=== PATIENT | female | born 1965 | race Caucasian/White ===

== ENCOUNTER → 2019-10-22 | Outpatient (CLI) | payer BC ==
[2019-10-22 13:17] VITALS: BP 143/85; PULSE 98; TEMP 98.2; BMI 30.4
--- NOTE | 2019-10-22 15:17 | P.BASOAP ---
Subjective Progress Note Date: 10/22/19 Principal diagnosis: Morbid obesity 54-year-old female known to our service. Patient had her lap band placed in May 2009. Patient with almost no follow-up after that. Last note is from September 2009. At that time patient had 5.5 mL in there. Preoperative weight 2008. Currently weight 177. States that she is usually in the 180s. Lately states that she is eating too much. She was told her blood sugars have been increasing. She still does have some restriction however. No vomiting. No reflux. Objective - Vital Signs Vital signs: Vital Signs Temp 98.2 F 10/22/19 13:01 Pulse 98 10/22/19 13:01 Resp BP 143/85 10/22/19 13:01 Pulse Ox Intake & Output 10/21/19 10/22/19 10/22/19 18:59 06:59 18:59 Weight 80.286 kg - Exam Abdomen: Soft, nontender, nondistended Assessment/Plan (1) Morbid obesity Narrative/Plan: Patient requesting band adjustment at this time. Her band was accessed sterilely. She had over 5 mL in the band. 0.5 mL was added for a total of 6 mL. Patient tolerated water without difficulties. Follow-up when necessary. Plan: Date: 10/22/19 Initial Weight: Initial BMI: Current Weight: 80.286 kg Current BMI: 30.4 Type of Surgery: Total Volume in Band: 6.5 Previous Volume: Volume Removed: Volume Added: 0.5 Band Size:
== END | disposition home or self-care (01) ==
LOC: BARWHC3 12:56
PROVIDERS: ATTEND Surgery
DX: Z46.51 Encounter for fitting and adjustment of gastric lap band (principal); E66.01 Morbid (severe) obesity due to excess calories; Z68.30 Body mass index [BMI] 30.0-30.9, adult
CPT/HCPCS: 99212

== ENCOUNTER → 2019-10-31 | Outpatient (CLI) | payer BC ==
[2019-10-31 13:29] VITALS: BP 135/81; PULSE 75; TEMP 98.1; BMI 29.5
--- NOTE | 2019-10-31 13:54 | P.BASOAP ---
Subjective Progress Note Date: 10/31/19 Principal diagnosis: Morbid obesity 54-year-old female known to our service. Patient was in the office last week and had a band adjustment from 5.5-6 mL. Shortly after that patient has noted increased dysphagia and frequent vomiting. Mild upper back discomfort. She was sent for an esophagram today which shows significant obstruction at the band site. Prominence of the gastric pouch noted with some flattening of the angle. No definitive prolapse. Objective - Vital Signs Vital signs: Vital Signs Temp 98.1 F 10/31/19 13:23 Pulse 75 10/31/19 13:23 Resp BP 135/81 10/31/19 13:23 Pulse Ox Intake & Output 10/30/19 10/31/19 10/31/19 18:59 06:59 18:59 Weight 78.018 kg - Exam Abdomen: Soft, nontender, nondistended Assessment/Plan (1) Morbid obesity Narrative/Plan: Upper GI results reviewed with the patient. Recommend emptying the band at this time. Recommend repeating esophagogram prior to refilling of the band. Return in 1 month. The patient's lap band port was palpated. The site was aseptically prepped. The De La Cruz needle was advanced into the port. A total of 5.5 ml of fluid was removed. Band is now empty. Pressure was held and a sterile dressing was applied. Plan: Date: 10/31/19 Initial Weight: Initial BMI: Current Weight: 78.018 kg Current BMI: 29.5 Type of Surgery: Total Volume in Band: 1.4 Previous Volume: Volume Removed: 5.1 Volume Added: Band Size:
== END | disposition home or self-care (01) ==
LOC: BARWHC3 12:51
PROVIDERS: ATTEND Surgery
DX: Z46.51 Encounter for fitting and adjustment of gastric lap band (principal); E66.01 Morbid (severe) obesity due to excess calories; Z68.29 Body mass index [BMI] 29.0-29.9, adult; Z98.84 Bariatric surgery status
CPT/HCPCS: 99212

== ENCOUNTER → 2019-10-31 | Outpatient (CLI) | payer BC ==
--- NOTE | 2019-10-31 11:15 | FL ---
EXAMINATION TYPE: FL barium swallow DATE OF EXAM: 10/31/2019 LAP BANDING LIMITED ESOPHAGRAM: CLINICAL HISTORY: Patient with history of lap band placed 2008 with 10 day episode of dysphasia afte r lap band fluid was refilled last Monday. TECHNIQUE: Limited esophagram is performed utilizing oral barium. A total 16 seconds of fluoroscopic time. 23 spot images saved to PACS. COMPARISON: Prior esophagram images May 29, 2009. FINDINGS: Pre-procedure olive pitter image shows lap band remains stable in position from 2008. It is sli ghtly more inferior than typical measuring roughly 1 vertebral body alignment below the left hemidiap hragm and has abnormal horizontal angle just under 90% slightly more prominent from prior study. The patient drinks oral contrast. There is satisfactory flow of contrast along the course of the esop hagus. There is marked delay in flow of contrast along the course of the lap band, there is only thi n caliber channel identified with majority of contrast pooling in the proximal stomach above lap band in the distal esophagus with periodic reflux into the mid to distal esophagus from the contrast prom inent stomach above the lap band. No extravasation to suggest leak. A 5 minute delayed radiograph zach ws some more passage of contrast into stomach and duodenal sweep along with proximal small bowel loop s. Moderate amount of residual contrast in dilated stomach above lap band and distal esophagus remain s present. IMPRESSION: Moderate to severe obstruction. Increased phi angle from 2008 study suggests some slight inferior slippage, lap band was always somewhat low lying by comparing with prior.
== END | disposition home or self-care (01) ==
LOC: RADFLMAIN 10:36
PROVIDERS: ATTEND Surgery
DX: K22.2 Esophageal obstruction (principal); Z98.84 Bariatric surgery status
CPT/HCPCS: 74220

== ENCOUNTER → 2020-01-28 | Outpatient (CLI) | payer BC ==
[2020-01-28 14:45] VITALS: BP 148/85; PULSE 86; RESP 16; TEMP 98.3
--- NOTE | 2020-01-28 16:16 | P.PN ---
Subjective Progress Note Date: 01/28/20 Principal diagnosis: Morbid obesity Patient here today to discuss potential conversion to alternative bariatric surgery. Patient's band was emptied in October. Patient had a prominent pouch and prolapse not excluded. Patient says her blood sugars have been increasing recently. Blood sugars have been between the mid 200-500 range. She was prescribed oral hypoglycemics but has not filled the prescription thus far. 3 pound increase since last visit. Some belching. No vomiting. Rare episodes of dysphagia. Doing much better once her band was emptied. Patient says her primary concern is resolution of her diabetes. Objective - Vital Signs Vital signs: Vital Signs Temp 98.3 F 01/28/20 14:44 Pulse 86 01/28/20 14:44 Resp 16 01/28/20 14:44 BP 148/85 01/28/20 14:44 Pulse Ox Intake & Output 01/27/20 01/28/20 01/28/20 18:59 06:59 18:59 Weight 79.379 kg - Exam Abdomen: Soft, nontender, nondistended Assessment and Plan (1) Morbid obesity Narrative/Plan: 54-year-old female with LAP-BAND and recent episodes of dysphagia. Upper GI shows probable dilated pouch although prolapse not excluded. She is interested in conversion to alternative bariatric procedure. States she is most interested in curing her diabetes. Both sleeve gastrectomy and gastric bypass options reviewed. Given the increased incidence of resolution of diabetes with gastric bypass we will make an appointment for her to discuss that option with Dr. Ryan. Await her evaluation. Current Visit: No Status: Acute Code(s): E66.01 - MORBID (SEVERE) OBESITY DUE TO EXCESS CALORIES SNOMED Code(s): 306510868
== END | disposition home or self-care (01) ==
LOC: BARWHC3 13:35
PROVIDERS: ATTEND Surgery
DX: E66.01 Morbid (severe) obesity due to excess calories (principal); R13.10 Dysphagia, unspecified; Z68.30 Body mass index [BMI] 30.0-30.9, adult
CPT/HCPCS: 99211

== ENCOUNTER → 2020-03-16 | Outpatient (CLI) | payer BC ==
[2020-03-16 11:33] VITALS: BMI 29.5
== END ==
LOC: BARWHC3 08:41
PROVIDERS: ATTEND Surgery
DX: Z71.3 Dietary counseling and surveillance (principal)
CPT/HCPCS: 97804

== ENCOUNTER → 2020-03-19 | Outpatient (CLI) | payer BC ==
[2020-03-19 10:51] LABS: HCT 44.5 % (34.0-46.0); HGB 14.4 gm/dL (11.4-16.0); MCH 30.7 pg (25.0-35.0); MCHC 32.2 g/dL (31.0-37.0); MCV 95.4 fL (80.0-100.0); Platelet Count 290 k/uL (150-450); RBC 4.67 m/uL (3.80-5.40); RDW 12.5 % (11.5-15.5)
[2020-03-19 17:03] LABS: ALT 27 U/L (8-44); AST 24 U/L (13-35); African American GFR (CKD) 96.2 (60.0-200.0); Albumin/Globulin Ratio 2.14 (1.60-3.17); Alkaline Phosphatase 84 U/L (41-126); BUN/Creat Ratio 21.25 Ratio (12.00-20.00); Calcium 10.2 mg/dL (8.7-10.3); Carbon Dioxide 26.1 mmol/L (21.6-31.8); Chloride 105 mmol/L (96-109); Globulin 2.1 g/dL (1.6-3.3); Glucose 107 mg/dL (70-110); Iron 101 ug/dL (50-170); Potassium 4.2 mmol/L (3.5-5.5); Sodium 139 mmol/L (135-145); Total Bilirubin 0.7 mg/dL (0.3-1.2); Total Protein 6.6 g/dL (6.2-8.2)
[2020-03-19 17:22] LABS: Folate, Serum >24.0 ng/mL
[2020-03-19 17:47] LABS: Hemoglobin A1C 6.8 % (4.0-6.0)
== END | disposition home or self-care (01) ==
LOC: LABWHC1 09:31
PROVIDERS: ATTEND Surgery
DX: E55.9 Vitamin D deficiency, unspecified (principal); K90.89 Other intestinal malabsorption; E66.01 Morbid (severe) obesity due to excess calories
CPT/HCPCS: 36415; 80053; 82306; 82607; 82746; 83036; 83540; 84425; 85027; 93005

== ENCOUNTER 2020-04-07 07:59 | Day surgery (SDC) | payer BC ==
[2020-04-02 15:49] VITALS: BMI 29.2
[~2020-04-07 07:59] MED LIST: LACTATED RINGERS 1,000 ML IV SCH; LIDOCAINE 1% (10MG/ML) FOR IV START INTRADERMA PRN
[2020-04-07] MEDS ORDERED: LIDOCAINE 1% (10MG/ML) FOR IV START INTRADERMA ONE (08:25)
[2020-04-07 08:36] VITALS: RESP 16; TEMP 97
[2020-04-07] MEDS ORDERED: PROPOFOL 10 MG/ML 20 ML VIAL IV ONE (08:40)
[2020-04-07] MEDS ORDERED: LIDOCAINE 1% INJ 10MG/ML (20 ML MDV) ONE (08:40)
[2020-04-07 08:42] LABS: Glucose,Whole Blood 92 mg/dL (75-99)
--- NOTE | 2020-04-07 08:43 | P.GSHP ---
History of Present Illness H&P Date: 04/07/20 Chief Complaint: Dysphagia 54-year-old female here today for EGD. Patient with history of previous lap band placement. Patient was having increased dysphagia and vomiting. Upper GI suggested gastric pouch dilation and possible early prolapse. Patient is interested in band removal and conversion to sleeve gastrectomy. She had considered conversion to gastric bypass but has chosen against that. Patient concerned about her worsening diabetes. Past Medical History Past Medical History: Diabetes Mellitus, Hyperlipidemia History of Any Multi-Drug Resistant Organisms: None Reported Past Surgical History: Bariatric Surgery, Section Additional Past Surgical History / Comment(s): lap band 2009 Past Anesthesia/Blood Transfusion Reactions: No Reported Reaction, Motion Sickness Smoking Status: Never smoker Medications and Allergies Home Medications Medication Instructions Recorded Confirmed Type Multivitamins, Thera [Multivitamin 1 tab PO DAILY 10/22/19 04/02/20 History (formulary)] glipiZIDE [Glucotrol] 2.5 mg PO DAILY 03/18/20 04/02/20 History metFORMIN HCL [Glucophage] 500 mg PO BID 03/18/20 04/02/20 History Ezetimibe/Simvastatin [Vytorin 1 tab PO DAILY 04/02/20 04/02/20 History 10-20 mg] diphenhydrAMINE [Benadryl] 25 mg PO HS PRN 04/02/20 04/02/20 History Allergies Allergy/AdvReac Type Severity Reaction Status Date / Time sulfamethoxazole Allergy Rash/Hives Verified 04/07/20 08:13 [From Aprra] trimethoprim [From Aprra] Allergy Rash/Hives Verified 04/07/20 08:13 Surgical - Exam Vital Signs Temp Pulse Resp BP Pulse Ox 97.0 F L 74 16 145/86 99 04/07/20 08:34 04/07/20 08:34 04/07/20 08:34 04/07/20 08:34 04/07/20 08:34 Physical exam: General: Well-developed, well-nourished HEENT: Normocephalic, sclerae nonicteric Abdomen: Nontender, nondistended Extremities: No edema Neuro: Alert and oriented Assessment and Plan (1) Dysphagia Narrative/Plan: Will proceed with upper endoscopy Current Visit: Yes Status: Acute Code(s): R13.10 - DYSPHAGIA, UNSPECIFIED SNOMED Code(s): 35388759
--- NOTE | 2020-04-07 08:51 | P.PCN ---
Date of Procedure: 04/07/20 Procedure(s) Performed: Preoperative Dx: GERD, band intolerance Postoperative Dx: Gastritis Procedure: EGD with Bx Anesthesia: Sedation Endoscopist: Dr. Weeks Specimens: Antrum Endoscopic Procedure: The patient was on the endoscopy table in the left decubitus position. The Olympus gastroscope was inserted into the oropharynx and passed under direct visualization to the region of the third portion of the duodenum. From that point the scope was slowly withdrawn inspecting all surfaces carefully. There were no neoplastic inflammatory or polypoid lesions throughout the duodenum. The pylorus was widely patent. The stomach was carefully inspected. There was gastritis present throughout the stomach. A biopsy of the antrum took place to rule out H. pylori. Retroflexion revealed a normal appearing band plication. The gastric pouch above the band was slightly larger than normal. No definite hiatal hernia was seen. The esophagus was then carefully examined. There were no neoplastic inflammatory or polypoid lesions throughout the visualized esophagus. The patient was then taken to the recovery room in stable condition per anesthesia guidelines. Recommendations: Await biopsy results. Begin antiacid therapy. Follow-up in the bariatric center.
[2020-04-07 09:17] VITALS: BP 145/88; PULSE 73
== END 2020-04-07 09:53 | disposition home or self-care (01) ==
LOC: ORWHC2ENDO 07:59
PROVIDERS: ATTEND Surgery
DX: K29.50 Unspecified chronic gastritis without bleeding (principal); B96.81 Helicobacter pylori [H. pylori] as the cause of diseases classified elsewhere; K21.9 Gastro-esophageal reflux disease without esophagitis; E11.9 Type 2 diabetes mellitus without complications; E78.5 Hyperlipidemia, unspecified; Z98.84 Bariatric surgery status; Z98.890 Other specified postprocedural states; Z79.84 Long term (current) use of oral hypoglycemic drugs; Z79.899 Other long term (current) drug therapy; Z88.2 Allergy status to sulfonamides; Z88.1 Allergy status to other antibiotic agents
CPT/HCPCS: 43239; 88305; 88342; J2001; J2704

== ENCOUNTER → 2020-06-02 | Outpatient (CLI) | payer BC ==
[2020-06-02 15:22] VITALS: BP 138/60; PULSE 74; TEMP 98; BMI 29.5
--- NOTE | 2020-06-02 16:50 | P.BASOAP ---
Subjective Progress Note Date: 06/02/20 Principal diagnosis: Morbid obesity Patient returns today for recheck. Recent EGD showed mild gastritis. Biopsies were H. pylori positive. He completed her antibiotic and antiacid therapy. Here today for urea breath test. Objective - Vital Signs Vital signs: Vital Signs Temp 98 F 06/02/20 15:17 Pulse 74 06/02/20 15:17 Resp BP 138/60 06/02/20 15:17 Pulse Ox Intake & Output 06/01/20 06/02/20 06/02/20 18:59 06:59 18:59 Weight 78.018 kg - Exam Abdomen: Soft, nontender, nondistended Assessment/Plan (1) Dysphagia Narrative/Plan: 54-year-old female with band intolerance. Band is empty. We'll check urea breath test today. Pending those results will schedule for band removal with sleeve gastrectomy. Patient I reviewed the surgical consent form in detail. Risks reviewed and all questions answered. Patient is agreeable. Plan: Date: 06/02/20 Initial Weight: 94.801 kg Initial BMI: 35.9 Current Weight: 78.018 kg Current BMI: 29.5 Type of Surgery: Total Volume in Band: 1.4 Previous Volume: Volume Removed: Volume Added: Band Size:
== END | disposition home or self-care (01) ==
LOC: BARWHC3 14:14
PROVIDERS: ATTEND Surgery
DX: E66.01 Morbid (severe) obesity due to excess calories (principal); R13.10 Dysphagia, unspecified; Z68.35 Body mass index [BMI] 35.0-35.9, adult
CPT/HCPCS: 99211

== ENCOUNTER 2020-09-14 11:55 | Inpatient (IN) | payer BC ==
--- NOTE | 2020-09-14 11:31 | P.GSHP ---
History of Present Illness H&P Date: 09/14/20 Chief Complaint: Band intolerance, dysphagia 55-year-old female known to our service. Patient had previous lap band placement in 2008. Upper GI was performed because the patient was having episodes of dysphagia and vomiting. Upper GI shows gastric pouch dilation with possible early prolapse. Patient interested in converting her band to an alternative bariatric procedure. She considered both bypass and sleeve gastrectomy. She has chosen sleeve gastrectomy stating she is worried about the side effects of gastric bypass manager terminal. No history of DVT or dysphagia in the past. EGD showed gastritis. No definite prolapse seen. Biopsies showed H. pylori. She was treated for H. pylori twice. Recent urea breath test was normal in July. Patient is a nonsmoker. BMI 30. Past Medical History Past Medical History: Diabetes Mellitus, Hyperlipidemia Additional Past Medical History / Comment(s): NO MEDS AT THIS TIME History of Any Multi-Drug Resistant Organisms: None Reported Past Surgical History: Bariatric Surgery, Section Additional Past Surgical History / Comment(s): lap band 2008, EGD Past Anesthesia/Blood Transfusion Reactions: No Reported Reaction, Motion Sickness Smoking Status: Never smoker - Past Family History Mother Family Medical History: No Reported History Medications and Allergies Home Medications Medication Instructions Recorded Confirmed Type No Known Home Medications 09/08/20 09/08/20 History Allergies Allergy/AdvReac Type Severity Reaction Status Date / Time sulfamethoxazole Allergy Rash/Hives Verified 09/08/20 09:44 [From ] trimethoprim [From ] Allergy Rash/Hives Verified 09/08/20 09:44 Surgical - Exam Physical exam: General: Well-developed, well-nourished HEENT: Normocephalic, sclerae nonicteric Abdomen: Nontender, nondistended Extremities: No edema Neuro: Alert and oriented Assessment and Plan (1) Morbid obesity Narrative/Plan: 55-year-old female with persistent obesity and indwelling LAP-BAND showing signs of possible early prolapse with persistent dysphagia, GERD, and intermittent vomiting. We'll proceed with lap band removal and planned conversion to sleeve gastrectomy. The risks of bleeding, infection, stenosis, stricture, leak, abscess, fistula formation, peritonitis, poor weight loss, reflux, vomiting, conversion to an open procedure, aborting sleeve gastrectomy, OH, PE, DVT, and were discussed. The patient understands and wishes to proceed. Status: Acute Code(s): E66.01 - MORBID (SEVERE) OBESITY DUE TO EXCESS CALORIES SNOMED Code(s): 588844495
[~2020-09-14 11:55] MED LIST changes: +DEXAMETHASONE SOD PHOSPHATE 4 MG/ML 1 ML VIAL IV ONE; -LACTATED RINGERS 1,000 ML IV SCH; -LIDOCAINE 1% (10MG/ML) FOR IV START INTRADERMA PRN; +MIDAZOLAM 2 MG/2 ML VIAL IV PRN; +ONDANSETRON 4 MG/2 ML VIAL IVP ONE; +SCOPOLAMINE 1.5MG/72HR PATCH TRANSDERM ONE
[2020-09-14 12:32] LABS: Glucose,Whole Blood 105 mg/dL (75-99)
[2020-09-14] MEDS: LACTATED RINGERS 1,000 ML IV SCH (12:39)
[2020-09-14] MEDS ORDERED: LIDOCAINE 1% (10MG/ML) FOR IV START INTRADERMA ONE (12:39)
[2020-09-14] MEDS ORDERED: ENOXAPARIN 40 MG/0.4 ML SYRINGE SQ STA (12:41)
[2020-09-14] MEDS ORDERED: HYDROmorphone (PF) 1 MG/ML ONE (13:10)
[2020-09-14] MEDS ORDERED: METHYLENE BLUE 10 MG/ML (10 ML VIAL) ONE (13:10)
[2020-09-14] MEDS ORDERED: MIDAZOLAM 2 MG/2 ML VIAL ONE (13:10)
[2020-09-14] MEDS ORDERED: DEXTROSE 5% IN WATER 500 ML BAG ONE (13:10)
[2020-09-14] MEDS ORDERED: LIDOCAINE 1% INJ 10MG/ML (20 ML MDV) ONE (13:10)
[2020-09-14] MEDS ORDERED: ROCURONIUM 10 MG/ML (10 ML VIAL) IV ONE (13:10)
[2020-09-14] MEDS ORDERED: fentaNYL (PF) 50 MCG/ML 2 ML AMP ONE (13:10)
[2020-09-14] MEDS ORDERED: GLYCOPYRROLATE 0.2 MG/ML 2 ML VIAL ONE (13:10)
[2020-09-14] MEDS ORDERED: PROPOFOL 10 MG/ML 20 ML VIAL IV ONE (13:10)
[2020-09-14] MEDS ORDERED: NEOSTIGMINE 1 MG/ML 10 ML VIAL ONE (13:10)
[2020-09-14] MEDS ORDERED: SUCCINYLCHOLINE CHLORIDE 100 MG/5 ML SYR IV ONE (13:10)
[2020-09-14] MEDS ORDERED: BUPIVACAINE (PF) 0.25% 30 ML VIAL SQ ONE (13:13)
[2020-09-14] MEDS ORDERED: LACTATED RINGERS 1,000 ML IV ONE ×2 (14:30→17:03)
[2020-09-14] MEDS ORDERED: diphenhydrAMINE 50 MG/ML 1 ML VIAL IVP PRN (15:17)
[2020-09-14] MEDS ORDERED: NALOXONE 0.4 MG/ML 1 ML VIAL IV PRN (15:17)
[2020-09-14] MEDS: HYDROmorphone 0.5 MG/0.5 ML SYRINGE IVP PRN ×2 (15:45→16:31)
[2020-09-14] MEDS ORDERED: HYDROmorphone 1 MG/ML 1 ML SYRINGE IVP ONE ×2 (15:45→15:50)
--- NOTE | 2020-09-14 15:45 | P.OP ---
Date of Procedure: 09/14/20 Procedure(s) Performed: PREOPERATIVE DIAGNOSIS: Morbid obesity, band intolerance, reflux POSTOPERATIVE DIAGNOSIS: Same PROCEDURE: Laparoscopic lap band removal with sleeve gastrectomy SURGEON: Micky EBL: 20 mL ANESTHESIA: General COMPLICATIONS: None OPERATIVE PROCEDURE: Patient was placed in the operating table in the supine position. She was placed under general anesthesia at that time. The abdomen was prepped and draped in sterile fashion after the patient was placed in lithotomy. The previous port incision was re-incised after localizing with anesthesia. The port was easily removed. Through that location and a 5 mm trocar was placed into the peritoneal cavity. Full insufflation took place up to 15 millimeters mercury. An additional right subxiphoid 5 mm trocar was then placed under direct visualization and then removed. 2 additional 5 mm trochars were placed in the right upper quadrant and left upper quadrant under direct visualization and a 12 mm trocar in the supraumbilical location. The initial 5 mm trocar was switched to a 15 at that point. The liver was retracted using a [facility] liver retractor through the right subxiphoid trocar site. The patient's lap band was inspected. The amount of adhesions around the band were less than average. The adhesions around the buckle were lysed using electrocautery and blunt dissection. The buckle was able to be opened fully at that point. The gastric plication was then taken down using sharp dissection and the LigaSure device. The hiatus was inspected. The patient had no visible hiatal hernia At that point I moved to the mid aspect of the greater curvature the stomach. The short gastric vasculature was divided using a LigaSure device proximally. I then switched and divided the short gastrics distally to a 3-4 cm from the pylorus. The dissection took place up to the left diaphragmatic crura at that point. The posterior adhesions from the previous band were divided using the LigaSure device as well. The cicatrix like formation around the band was actually fairly soft and did not require excision over the gastric serosa. The band was removed at that point. Once the stomach was fully mobilized the blunt tipped 40-[place] bougie dilator was advanced into the stomach and advanced all the way to the prepyloric location. A black echelon 60 stapler was utilized and fired tangentially across the antrum taking care to avoid narrowing at the incisura angularis. Subsequent firings of the stapler took place. A total of 5 green echelon 60 staplers with seam guard took place proximally staying on the outer edge of our dilator. The oral gastric tube was reinserted. The stomach was insufflated with approximately 100 mL of methylene blue. No evidence of leak or obstruction was seen. Tisseel fibrin glue was used along the length of staple line. Her were 2 small areas along the staple line that were oozing and controlled using the clip production floater. Additionally during the procedure a small area of bleeding was seen along the gastrocolic omentum when we were mobilizing the antrum. This was controlled using a clipper as well. The stomach remnant was removed from the 15 mm trocar site without difficulty. The fascia at the 15 and 12 mm trocar site was closed using interrupted 0 Vicryl sutures with the laparoscopic suture passer and Jayant Dominick technique. The insufflation was evacuated. The skin at all 5 incisions were closed using 4-0 Monocryl sutures. Skin glue was then applied. DISPOSITION: Stable to recovery room
[2020-09-14] MEDS ORDERED: ONDANSETRON 4 MG/2 ML VIAL IVP ONE ×2 (15:50→15:55)
[2020-09-14] MEDS ORDERED: diphenhydrAMINE 50 MG/ML 1 ML VIAL IVP ONE (16:12)
[2020-09-14 16:22] LABS: Glucose,Whole Blood 164 mg/dL (75-99)
[2020-09-14] MEDS: ALBUTEROL NEBULIZED 2.5 MG/3 ML INHALATION SCH ×3 (18:22→19:55)
[2020-09-14] MEDS: 0.9% NACL WITH KCL 20 MEQ/L 1,000 ML IV SCH (18:22)
[2020-09-14] MEDS: HYDROmorphone 1 MG/ML 1 ML SYRINGE IVP PRN (19:34)
[2020-09-14] MEDS: ONDANSETRON 4 MG/2 ML VIAL IVP PRN (19:34)
[2020-09-14 21:14] LABS: Glucose,Whole Blood 197 mg/dL (75-99)
[2020-09-14] MEDS: INSULIN ASPART (NovoLOG) 100 UNIT/ML VIAL SQ SCH (21:29)
--- NOTE | 2020-09-14 22:33 | P.CONS ---
History of Present Illness - Reason for Consult Consult date: 09/14/20 medical management of DM Requesting physician: Dilan Weeks - Chief Complaint scheduled for bariatric surgery - History of Present Illness 55 year old female with DM and obesity patient comes in for removal of lap band and elective gastric sleeve. patient had lap band done 2008 for obesity , and since then she has been doing well and lost some weight. recently, started experiencing repeated occasional vomiting and dysphagia, she had Upper GI scoping showing gastric pouch dilatation and possible early prolapse and gastritis. biopsy also was positive for H pylori for which she was treated twice. patient tolerated procedure well today, she is still NPO, denies any chest pain or trouble breathing, denies any GI bleeding, denies any fever, or abd pain . she has history of DM , and on metformin, and recently discontinued glipizide due to hypoglycemia episodes Review of Systems Pertinent positives as noted in HPI. All other systems were reviewed and are negative Past Medical History Past Medical History: Diabetes Mellitus, Hyperlipidemia Additional Past Medical History / Comment(s): NO MEDS AT THIS TIME History of Any Multi-Drug Resistant Organisms: None Reported Past Surgical History: Bariatric Surgery, Section Additional Past Surgical History / Comment(s): lap band 2008, EGD Past Anesthesia/Blood Transfusion Reactions: No Reported Reaction, Motion Sickness Smoking Status: Never smoker - Past Family History Mother Family Medical History: No Reported History Medications and Allergies Home Medications Medication Instructions Recorded Confirmed Type No Known Home Medications 09/08/20 09/14/20 History Allergies Allergy/AdvReac Type Severity Reaction Status Date / Time sulfamethoxazole Allergy Rash/Hives Verified 09/14/20 12:49 [From ] trimethoprim [From ] Allergy Rash/Hives Verified 09/14/20 12:49 Physical Exam Vitals: Vital Signs Temp Pulse Pulse Pulse Resp BP BP 09/14/20 20:05 100 09/14/20 19:55 104 H 09/14/20 18:35 98.9 F 105 H 18 161/82 09/14/20 18:04 98.8 F 100 18 158/80 09/14/20 17:30 100 14 150/70 09/14/20 17:15 95 16 164/83 09/14/20 17:00 92 14 171/84 09/14/20 16:45 107 H 14 164/79 09/14/20 16:30 84 16 168/81 09/14/20 16:15 82 16 167/78 09/14/20 16:00 102 H 16 166/77 09/14/20 15:45 102 H 14 158/74 09/14/20 15:30 109 H 14 162/77 09/14/20 15:27 97.8 F 98 14 165/77 09/14/20 12:18 97.7 F 89 16 150/80 Pulse Ox 09/14/20 20:05 09/14/20 19:55 96 09/14/20 18:35 98 09/14/20 18:04 94 L 09/14/20 17:30 98 09/14/20 17:15 92 L 09/14/20 17:00 99 09/14/20 16:45 99 09/14/20 16:30 100 09/14/20 16:15 100 09/14/20 16:00 100 09/14/20 15:45 96 09/14/20 15:30 100 09/14/20 15:27 95 09/14/20 12:18 97 Intake and Output 09/14/20 09/14/20 09/14/20 06:59 14:59 22:59 Intake Total 1250 900 Output Total 20 Balance 1250 880 Intake: IV 1250 900 Output: Estimated Blood Loss 20 Other: Weight 78.2 kg 78.2 kg Constitutional: No acute distress, conversant, pleasant Eyes: Anicteric sclerae, moist conjunctiva, Pupils equal round reactive to light ENMT: NC/AT Oropharynx clear, no erythema, or exudates Neck: Supple, FROM, no masses, or JVD No carotid bruits No thyromegaly Lungs: Clear to auscultation Clear to percussion Normal respiratory effort, no accessory muscle use Cardiovascular: Heart regular in rate and rhythm, No murmurs, gallops, or rubs No peripheral edema Abdominal: Soft, surgical scaring of laproscopy looks clean dry and intact. no surrounding erythema no bruising Nontender, no guarding, rebound or rigidity Abdomen moving with respiration bowel sounds sluggish No hepatomegaly, No splenomegaly No palpable mass No abdominal wall hernia noted Skin: Normal temperature, tone, texture, turgor No induration No subcutaneous nodules No rash, lesions No ulcers Extremities: No digital cyanosis No clubbing Pedal pulses intact and symmetrical Radial pulses intact and symmetrical No calf tenderness Psychiatric: Alert and oriented to person, place and time Appropriate affect fair judgement Neuro Muscles Strength 5/5 in all 4 extremities Sensation to light touch grossly present throughout Cranial nerves II-XII grossly intact No focal sensory deficits Lymphatics: no palpable cervical or supraclavicular , or inguinal lymph nodes Results Labs: Abnormal Lab Results - Last 24 Hours (Table) 09/14/20 09/14/20 Range/Units 12:30 16:20 POC Glucose (mg/dL) 105 H 164 H (75-99) mg/dL Assessment and Plan Assessment: revision and removal of lap band, plus gastric sleeve, POD zero management per Gen Sx pain control IVF hydration still NPO post op local wound care post op DVT ppx per general surgery DM , on oral hypoglycemia agents , on hold check A1C insulin sliding scale hyperlipidemia resume home meds obesity life style modification , post bariatric surgery DVT prophylaxis on Lovenox GI PPX with PPI check A1C check CBC and BMP in AM Thank you for allowing us to participate in the care of this patient. Do not hesitate to contact us with questions. Someone can be reached from the [facility] hospitalist group at all hours of the day at [phone].
[2020-09-15] MEDS: HYDROmorphone 1 MG/ML 1 ML SYRINGE IVP PRN ×4 (00:34→14:36)
[2020-09-15] MEDS: SIMETHICONE 40 MG/0.6 ML DROPS 2,000 MG/30 ML BOTTLE PO PRN ×3 (00:35→15:29)
[2020-09-15] MEDS: HYOSCYAMINE ORAL DROPS 1.875 MG/15 ML BOTTLE PO PRN ×2 (00:35→05:41)
[2020-09-15] MEDS: 0.9% NACL WITH KCL 20 MEQ/L 1,000 ML IV SCH ×2 (00:35→08:17)
[2020-09-15] MEDS: ENOXAPARIN 40 MG/0.4 ML SYRINGE SQ SCH ×2 (05:39→17:36)
[2020-09-15 06:26] LABS: Basophils % (A) 0 %; Eosinophils % (A) 0 %; HCT 40.1 % (34.0-46.0); HGB 13.6 gm/dL (11.4-16.0); Lymphocytes # (A) 1.7 k/uL (1.0-4.8); Lymphocytes % (A) 14 %; MCH 31.3 pg (25.0-35.0); MCHC 33.8 g/dL (31.0-37.0); MCV 92.6 fL (80.0-100.0); Mean Platelet Volume 7.6; Monocytes # (A) 0.8 k/uL (0-1.0); Monocytes % (A) 7 %; Neutrophils # (A) 9.2 k/uL (1.3-7.7); Neutrophils % (A) 77 %; Platelet Count 280 k/uL (150-450); RBC 4.33 m/uL (3.80-5.40); WBC 11.9 k/uL (3.8-10.6)
[2020-09-15 07:40] LABS: Glucose,Whole Blood 113 mg/dL (75-99)
[2020-09-15] MEDS: ALBUTEROL NEBULIZED 2.5 MG/3 ML INHALATION SCH ×4 (08:01→19:45)
[2020-09-15] MEDS: LACTATED RINGERS 1,000 ML IV SCH (08:13)
[2020-09-15] MEDS: INSULIN ASPART (NovoLOG) 100 UNIT/ML VIAL SQ SCH ×4 (08:15→20:44)
[2020-09-15] MEDS: PANTOPRAZOLE 40 MG/10 ML VIAL IV SCH (08:17)
--- NOTE | 2020-09-15 09:39 | FL ---
EXAMINATION TYPE: FL UGI DATE OF EXAM: 09/15/2020 CLINICAL HISTORY: Status post gastric sleeve Contrast: Omnipaque 350 50 mL The patient ingested contrast without difficulty or delay. Noted are postsurgical changes of gastric sleeve. There is no evidence for leak or obstruction. Contrast is noted within the duodenum. IMPRESSION: Post-surgical change of gastric sleeve without evidence for obstruction or leak at this point in time.
[2020-09-15 09:49] LABS: African American GFR (CKD) 112.3 (60.0-200.0); Anion Gap 2.3 mmol/L (4.00-12.00); Calcium 9.5 mg/dL (8.7-10.3); Carbon Dioxide 26.7 mmol/L (21.6-31.8); Magnesium 1.6 mg/dL (1.5-2.4); Non-African American GFR(CKD) 96.9 (60.0-200.0); Phosphorus 2.7 mg/dL (2.4-5.1); Potassium 4.4 mmol/L (3.5-5.5)
[2020-09-15] MEDS: ONDANSETRON 4 MG/2 ML VIAL IVP PRN (09:57)
[2020-09-15 11:55] LABS: Glucose,Whole Blood 130 mg/dL (75-99)
[2020-09-15 12:48] VITALS: BMI 29.5
--- NOTE | 2020-09-15 14:21 | P.PN ---
Subjective Progress Note Date: 09/15/20 Patient is doing well today. She is complaining of some epigastric pain. She is tolerating liquid diet with no difficulty. Objective - Vital Signs Vital signs: Vital Signs Temp 98.7 F 09/15/20 07:48 Pulse 94 09/15/20 11:42 Resp 16 09/15/20 11:42 BP 126/72 09/15/20 07:48 Pulse Ox 98 09/15/20 07:48 Intake & Output 09/14/20 09/15/20 09/15/20 18:59 06:59 18:59 Intake Total 215 Output Total 20 Balance 2129 Weight 78.2 kg 78.2 kg Intake: IV 2149 Output: Estimated Blood Loss 20 Other: # Voids 4 - Exam General: The patient is awake and alert, in no distress Eye: there is normal conjunctiva bilaterally. Neck: The neck is supple, there is no JVD. Cardiovascular: Normal S1-S2, no S3-S4, no murmurs. Respiratory: Lungs clear to auscultation bilaterally Gastrointestinal: Abdomen is soft, nontender Musculoskeletal: There is no pedal edema. Neurological:. Speech is normal. Skin: Skin is warm and dry - Labs CBC & Chem 7: 09/15/20 06:03 09/15/20 06:03 Labs: Abnormal Lab Results - Last 24 Hours (Table) 09/14/20 09/14/20 09/15/20 Range/Units 16:20 21:12 06:03 WBC 11.9 H (3.8-10.6) k/uL Neutrophils # 9.2 H (1.3-7.7) k/uL Chloride (96-109) mmol/L Anion Gap (4.00-12.00) mmol/L POC Glucose (mg/dL) 164 H 197 H (75-99) mg/dL 09/15/20 09/15/20 09/15/20 Range/Units 06:03 07:11 11:51 WBC (3.8-10.6) k/uL Neutrophils # (1.3-7.7) k/uL Chloride 110 H (96-109) mmol/L Anion Gap 2.30 L (4.00-12.00) mmol/L POC Glucose (mg/dL) 113 H 130 H (75-99) mg/dL Assessment and Plan Assessment: revision and removal of lap band, plus gastric sleeve, POD 1 management per Gen Sx pain control IVF hydration Diet as ordered by surgery currently on liquid local wound care post op DVT ppx per general surgery DM , on oral hypoglycemia agents , on hold insulin sliding scale hyperlipidemia resume home meds obesity life style modification , post bariatric surgery DVT prophylaxis on Lovenox GI PPX with PPI Discharge planning per primary team
--- NOTE | 2020-09-15 16:38 | P.PN ---
Subjective Progress Note Date: 09/15/20 Principal diagnosis: Obesity Patient complaining of nausea and mild discomfort. Today's upper GI shows no evidence of leak or obstruction. White blood cell count 11.9, T-max 99. Mild intermittent tachycardia. Feels better than last night. Objective - Vital Signs Vital signs: Vital Signs Temp 98.5 F 09/15/20 14:40 Pulse 94 09/15/20 16:07 Resp 16 09/15/20 14:40 BP 154/76 09/15/20 14:40 Pulse Ox 96 09/15/20 14:40 Intake & Output 09/14/20 09/15/20 09/15/20 18:59 06:59 18:59 Intake Total 2150 Output Total 20 Balance 2129 Weight 78.2 kg 78.2 kg Intake: IV 0 Output: Estimated Blood Loss 20 Other: # Voids 4 - Exam Abdomen: Soft, nondistended, incisions clean and dry, mild upper abdominal te nderness - Labs CBC & Chem 7: 09/15/20 06:03 09/15/20 06:03 Labs: Abnormal Lab Results - Last 24 Hours (Table) 09/14/20 09/15/20 09/15/20 Range/Units 21:12 06:03 06:03 WBC 11.9 H (3.8-10.6) k/uL Neutrophils # 9.2 H (1.3-7.7) k/uL Chloride 110 H (96-109) mmol/L Anion Gap 2.30 L (4.00-12.00) mmol/L POC Glucose (mg/dL) 197 H (75-99) mg/dL 09/15/20 09/15/20 Range/Units 07:11 11:51 WBC (3.8-10.6) k/uL Neutrophils # (1.3-7.7) k/uL Chloride (96-109) mmol/L Anion Gap (4.00-12.00) mmol/L POC Glucose (mg/dL) 113 H 130 H (75-99) mg/dL Assessment and Plan (1) Morbid obesity Narrative/Plan: Patient doing fairly well. Begin bariatric clears. Add Toradol for pain control. Ambulate. Current Visit: Yes Status: Acute Code(s): E66.01 - MORBID (SEVERE) OBESITY DUE TO EXCESS CALORIES SNOMED Code(s): 286430169
[2020-09-15 17:10] LABS: Hemoglobin A1C 6.3 % (4.0-6.0)
[2020-09-15 17:22] LABS: Glucose,Whole Blood 135 mg/dL (75-99)
[2020-09-15] MEDS: KETOROLAC 15 MG/ML 1 ML VIAL IVP SCH ×2 (17:36→23:18)
[2020-09-15 20:46] LABS: Glucose,Whole Blood 141 mg/dL (75-99)
[2020-09-16] MEDS: LACTATED RINGERS 1,000 ML IV SCH (04:47)
[2020-09-16] MEDS: KETOROLAC 15 MG/ML 1 ML VIAL IVP SCH ×4 (05:11→23:25)
[2020-09-16] MEDS: SIMETHICONE 40 MG/0.6 ML DROPS 2,000 MG/30 ML BOTTLE PO PRN (05:13)
[2020-09-16] MEDS: ENOXAPARIN 40 MG/0.4 ML SYRINGE SQ SCH ×2 (05:18→17:05)
[2020-09-16 06:45] LABS: Basophils % (A) 0 %; Eosinophils # (A) 0.1 k/uL (0-0.7); Eosinophils % (A) 1 %; HCT 35.4 % (34.0-46.0); HGB 12.1 gm/dL (11.4-16.0); Lymphocytes # (A) 0.9 k/uL (1.0-4.8); Lymphocytes % (A) 12 %; MCH 31.8 pg (25.0-35.0); MCHC 34.2 g/dL (31.0-37.0); MCV 93.1 fL (80.0-100.0); Mean Platelet Volume 7.7; Monocytes # (A) 0.5 k/uL (0-1.0); Monocytes % (A) 7 %; Neutrophils # (A) 5.9 k/uL (1.3-7.7); Neutrophils % (A) 78 %; Platelet Count 211 k/uL (150-450); RDW 12.1 % (11.5-15.5); WBC 7.5 k/uL (3.8-10.6)
[2020-09-16 07:31] LABS: Glucose,Whole Blood 106 mg/dL (75-99)
[2020-09-16] MEDS: INSULIN ASPART (NovoLOG) 100 UNIT/ML VIAL SQ SCH ×4 (07:36→20:30)
[2020-09-16] MEDS ORDERED: bisacodyL 5 MG TABLET.DR PO PRN (08:00)
[2020-09-16] MEDS: ALBUTEROL NEBULIZED 2.5 MG/3 ML INHALATION SCH ×4 (08:06→19:20)
[2020-09-16] MEDS: PANTOPRAZOLE 40 MG/10 ML VIAL IV SCH (08:54)
--- NOTE | 2020-09-16 11:37 | P.PN ---
<Liz Bobo - Last Filed: 09/16/20 12:51> Subjective Progress Note Date: 09/16/20 CHIEF COMPLAINT: Morbid Obesity HISTORY OF PRESENT ILLNESS: Patient is status post laparoscopic band removal with sleeve gastrectomy. Patient is not tolerating her bariatric clear liquids. She has been having vomiting after drinking the clears. She reports it as having phlegm in her mouth after drinking liquids. She she denies any abdominal pain. She denies any flatus or BM. She is up and ambulating. Afebrile. WBC 7.5 PHYSICAL EXAM: VITAL SIGNS: Reviewed. GENERAL: Well-developed in no acute distress. HEENT: No sclera icterus. Extraocular movements grossly intact. Moist buccal mucosa. Head is atraumatic, normocephalic. ABDOMEN: Soft. Nondistended. Nontender. Incision sites clean dry and intact NEUROLOGIC: Alert and oriented. Cranial nerves II through XII grossly intact. ASSESSMENT: 1. Morbid obesity, banded tolerance and reflux patient is status post laparoscopic lap band removal with sleeve gastrectomy, postop day #2 PLAN: -Continue bariatric clear liquid diet -Educated patient to drink small slow, frequent sips of her liquids. -Educated patient to sit up straight while drinking liquids and to remain upright after drinking -Encourage patient to ambulate -Encourage patient to use incentive spirometer -Continue GI prophylaxis Protonix and DVT prophylaxis Lovenox Physician Waitress note has been reviewed by physician. Signing provider agrees with the documented findings, assessment, and plan of care. Objective - Vital Signs Vital signs: Vital Signs Temp 99.2 F 09/16/20 07:00 Pulse 78 09/16/20 07:00 Resp 16 09/16/20 07:00 BP 124/68 09/16/20 07:00 Pulse Ox 95 09/16/20 07:00 Intake & Output 09/15/20 09/16/20 09/16/20 18:59 06:59 18:59 Intake Total 1011.2 Balance 1011.2 Weight 78.2 kg Intake: Intake, IV Titration 1011.2 Amount Mvi, Adult No.4 with Vit 1011.2 K 10 ml Thiamine 100 mg Folic Acid 1 mg In 0.9% NaCl with KCl 20 Meq/l 1, 000 ml @ 100 mls/hr IV . BY DURATION ABDIAZIZ Rx#: [id number] Other: Voiding Method Toilet # Voids 2 - Labs CBC & Chem 7: 09/16/20 06:22 09/16/20 06:22 Labs: Abnormal Lab Results - Last 24 Hours (Table) 09/15/20 09/15/20 09/15/20 Range/Units 06:03 11:51 17:10 Lymphocytes # (1.0-4.8) k/uL POC Glucose (mg/dL) 130 H 135 H (75-99) mg/dL Hemoglobin A1c 6.3 H (4.0-6.0) % 09/15/20 09/16/20 09/16/20 Range/Units 20:44 06:22 07:11 Lymphocytes # 0.9 L (1.0-4.8) k/uL POC Glucose (mg/dL) 141 H 106 H (75-99) mg/dL Hemoglobin A1c (4.0-6.0) % <Dilan Weeks - Last Filed: 09/16/20 18:49> Subjective As above. Patient doing better today. She was nauseated and having a small amount of regurgitation earlier. That has resolved. Tolerating liquids now. Monitor oral intake tomorrow but hopefully discharge in the afternoon. Objective - Vital Signs Vital signs: Vital Signs Temp 99.4 F 09/16/20 14:45 Pulse 80 09/16/20 16:24 Resp 16 09/16/20 14:45 BP 130/75 09/16/20 14:45 Pulse Ox 98 09/16/20 14:45 Intake & Output 09/15/20 09/16/20 09/16/20 18:59 06:59 18:59 Intake Total 1011.2 Balance 1011.2 Weight 78.2 kg Intake: Intake, IV Titration 1011.2 Amount Mvi, Adult No.4 with Vit 1011.2 K 10 ml Thiamine 100 mg Folic Acid 1 mg In 0.9% NaCl with KCl 20 Meq/l 1, 000 ml @ 100 mls/hr IV . BY DURATION ABDIAZIZ Rx#: [id number] Other: Voiding Method Toilet # Voids 2 # Emeses 2 - Labs CBC & Chem 7: 09/16/20 06:22 09/16/20 06:22 Labs: Abnormal Lab Results - Last 24 Hours (Table) 09/15/20 09/16/20 09/16/20 Range/Units 20:44 06:22 06:22 Lymphocytes # 0.9 L (1.0-4.8) k/uL BUN 8.0 L (9.0-27.0) mg/dL Glucose 112 H (70-110) mg/dL POC Glucose (mg/dL) 141 H (75-99) mg/dL 09/16/20 09/16/20 Range/Units 07:11 11:39 Lymphocytes # (1.0-4.8) k/uL BUN (9.0-27.0) mg/dL Glucose (70-110) mg/dL POC Glucose (mg/dL) 106 H 102 H (75-99) mg/dL Assessment and Plan (1) Morbid obesity Current Visit: Yes Status: Acute Code(s): E66.01 - MORBID (SEVERE) OBESITY DUE TO EXCESS CALORIES OMED Code(s): 949858357
[2020-09-16 11:43] LABS: Glucose,Whole Blood 102 mg/dL (75-99)
--- NOTE | 2020-09-16 11:50 | P.PN ---
Subjective Progress Note Date: 09/16/20 Patient is still having problems with liquid diet with what she described that she has to spit up the liquid right after swallowing. She denies any abdominal pain. Objective - Vital Signs Vital signs: Vital Signs Temp 99.2 F 09/16/20 07:00 Pulse 78 09/16/20 07:00 Resp 16 09/16/20 07:00 BP 124/68 09/16/20 07:00 Pulse Ox 95 09/16/20 07:00 Intake & Output 09/15/20 09/16/20 09/16/20 18:59 06:59 18:59 Intake Total 1011.2 Balance 1011.2 Weight 78.2 kg Intake: Intake, IV Titration 1011.2 Amount Mvi, Adult No.4 with Vit 1011.2 K 10 ml Thiamine 100 mg Folic Acid 1 mg In 0.9% NaCl with KCl 20 Meq/l 1, 000 ml @ 100 mls/hr IV . BY DURATION ABDIAZIZ Rx#: [id number] Other: Voiding Method Toilet # Voids 2 - Exam General: The patient is awake and alert, in no distress Eye: there is normal conjunctiva bilaterally. Neck: The neck is supple, there is no JVD. Cardiovascular: Normal S1-S2, no S3-S4, no murmurs. Respiratory: Lungs clear to auscultation bilaterally Gastrointestinal: Abdomen is soft, nontender Musculoskeletal: There is no pedal edema. Neurological:. Speech is normal. Skin: Skin is warm and dry - Labs CBC & Chem 7: 09/16/20 06:22 09/15/20 06:03 Labs: Abnormal Lab Results - Last 24 Hours (Table) 09/15/20 09/15/20 09/15/20 Range/Units 06:03 11:51 17:10 Lymphocytes # (1.0-4.8) k/uL POC Glucose (mg/dL) 130 H 135 H (75-99) mg/dL Hemoglobin A1c 6.3 H (4.0-6.0) % 09/15/20 09/16/20 09/16/20 Range/Units 20:44 06:22 07:11 Lymphocytes # 0.9 L (1.0-4.8) k/uL POC Glucose (mg/dL) 141 H 106 H (75-99) mg/dL Hemoglobin A1c (4.0-6.0) % 09/16/20 Range/Units 11:39 Lymphocytes # (1.0-4.8) k/uL POC Glucose (mg/dL) 102 H (75-99) mg/dL Hemoglobin A1c (4.0-6.0) % Assessment and Plan Assessment: revision and removal of lap band, plus gastric sleeve, POD 2 management per Gen Sx pain control IVF hydration Diet as ordered by surgery currently on liquid local wound care post op DVT ppx per general surgery DM , on oral hypoglycemia agents , on hold insulin sliding scale hyperlipidemia resume home meds obesity life style modification , post bariatric surgery DVT prophylaxis on Lovenox GI PPX with PPI Discharge planning per primary team
[2020-09-16 12:32] LABS: African American GFR (CKD) 118.1 (60.0-200.0); Anion Gap 8.8 mmol/L (4.00-12.00); BUN/Creat Ratio 13.33 Ratio (12.00-20.00); Calcium 9.1 mg/dL (8.7-10.3); Carbon Dioxide 26.2 mmol/L (21.6-31.8); Non-African American GFR(CKD) 101.9 (60.0-200.0); Potassium 4.3 mmol/L (3.5-5.5)
[2020-09-16 16:38] LABS: Glucose,Whole Blood 81 mg/dL (75-99)
[2020-09-16 20:27] LABS: Glucose,Whole Blood 76 mg/dL (75-99)
[2020-09-17] MEDS: KETOROLAC 15 MG/ML 1 ML VIAL IVP SCH ×2 (05:16→12:25)
[2020-09-17] MEDS: ENOXAPARIN 40 MG/0.4 ML SYRINGE SQ SCH (05:17)
[2020-09-17 06:57] LABS: Glucose,Whole Blood 90 mg/dL (75-99)
[2020-09-17] MEDS: INSULIN ASPART (NovoLOG) 100 UNIT/ML VIAL SQ SCH ×2 (07:00→12:23)
[2020-09-17] MEDS: ALBUTEROL NEBULIZED 2.5 MG/3 ML INHALATION SCH ×2 (07:23→11:01)
[2020-09-17] MEDS: LACTATED RINGERS 1,000 ML IV SCH (07:40)
[2020-09-17 10:11] VITALS: BP 120/71; RESP 18; TEMP 98.5
[2020-09-17] MEDS: PANTOPRAZOLE 40 MG/10 ML VIAL IV SCH (11:04)
[2020-09-17 11:11] VITALS: PULSE 80
[2020-09-17 11:47] LABS: Glucose,Whole Blood 87 mg/dL (75-99)
--- NOTE | 2020-09-17 12:22 | P.PN ---
Subjective Patient is doing well today. She denies any abdominal pain. She is tolerating liquid diet with no difficulty. She is not passing gas as of yet. Objective - Vital Signs Vital signs: Vital Signs Temp 98.5 F 09/17/20 07:20 Pulse 80 09/17/20 11:10 Resp 18 09/17/20 07:20 BP 120/71 09/17/20 07:20 Pulse Ox 98 09/17/20 02:24 Intake & Output 09/16/20 09/17/20 09/17/20 18:59 06:59 18:59 Intake Total 1011.2 Balance 1011.2 Intake: Intake, IV Titration 1011.2 Amount Mvi, Adult No.4 with Vit 1011.2 K 10 ml Thiamine 100 mg Folic Acid 1 mg In 0.9% NaCl with KCl 20 Meq/l 1, 000 ml @ 100 mls/hr IV . BY DURATION ABDIAZIZ Rx#: [id number] Other: Voiding Method Toilet Toilet # Voids 2 # Emeses 2 - Exam General: The patient is awake and alert, in no distress Eye: there is normal conjunctiva bilaterally. Neck: The neck is supple, there is no JVD. Cardiovascular: Normal S1-S2, no S3-S4, no murmurs. Respiratory: Lungs clear to auscultation bilaterally Gastrointestinal: Abdomen is soft, nontender Musculoskeletal: There is no pedal edema. Neurological:. Speech is normal. Skin: Skin is warm and dry - Labs CBC & Chem 7: 09/16/20 06:22 09/16/20 06:22 Labs: Abnormal Lab Results - Last 24 Hours (Table) 09/16/20 Range/Units 06:22 BUN 8.0 L (9.0-27.0) mg/dL Glucose 112 H (70-110) mg/dL Assessment and Plan Assessment: revision and removal of lap band, plus gastric sleeve, POD 2 management per Gen Sx pain control Diet as ordered by surgery currently on liquid local wound care post op DVT ppx per general surgery DM , on oral hypoglycemia agents , on hold insulin sliding scale hyperlipidemia resume home meds obesity life style modification , post bariatric surgery DVT prophylaxis on Lovenox GI PPX with PPI Advised to discontinue IV fluid Encourage ambulation Discharge planning per primary team
--- NOTE | 2020-09-17 13:57 | P.DS ---
<Liz Bobo - Last Filed: 09/17/20 13:53> Providers Expected date of discharge: 09/17/20 Hospital Course: Discharge diagnosis 1. Morbid obesity, band intolerance and reflux patient is status post laparoscopic lap band removal with sleeve gastrectomy Hospital course This is a 55-year-old female who had previous lap band placement in 2008. Upper GI was performed because the patient was having episodes of dysphagia and vomiting. Upper GI shows gastric pouch dilation with possible early prolapse. EGD showed gastritis. No definite prolapse seen. Biopsies showed H. pylori. She was treated for H. pylori twice. Recent urea breath test was normal in July. Patient is status post laparoscopic lap band removal with sleeve gastrectomy for her morbid obesity, band intolerance and reflux. Patient is tolerating bariatric clear liquid diet. Her pain is controlled. She is ambulat ing. She is afebrile. She is stable for discharge. Please refer to chart for any further details. Physician Metal Trimmer note has been reviewed by physician. Signing provider agrees with the documented findings, assessment, and plan of care. Patient Condition at Discharge: Stable Plan - Discharge Summary Discharge Rx Participant: Yes New Discharge Prescriptions: New bisacodyL [Dulcolax] 5 mg PO DAILY PRN #10 tablet. PRN Reason: Constipation Simethicone 40 mg/0.6 ml Drops [Mylicon Drops] 40 mg PO PCHS PRN #30 ml PRN Reason: Gas HYDROcodone/APAP 5-325MG [[place] 5] 1 each PO Q6HR PRN #10 tab PRN Reason: Pain Omeprazole [PriLOSEC] 40 mg PO DAILY #30 capsule. Ondansetron Odt [Zofran Odt] 4 mg PO Q8HR PRN #9 tab PRN Reason: Nausea Discharge Medication List HYDROcodone/APAP 5-325MG [[place] 5] 1 each PO Q6HR PRN #10 tab 09/17/20 [Rx] Omeprazole [PriLOSEC] 40 mg PO DAILY #30 capsule. 09/17/20 [Rx] Ondansetron Odt [Zofran Odt] 4 mg PO Q8HR PRN #9 tab 09/17/20 [Rx] Simethicone 40 mg/0.6 ml Drops [Mylicon Drops] 40 mg PO PCHS PRN #30 ml 09/17/20 [Rx] bisacodyL [Dulcolax] 5 mg PO DAILY PRN #10 tablet. 09/17/20 [Rx] Follow up Appointment(s)/Referral(s): Dilan Weeks [place] [Medical Doctor[facility] [place] - 09/22/20 2:45 pm Patient Instructions/Handouts: Nutrition after Bariatric Surgery (DC), Laparoscopic Sleeve Gastrectomy (DC) Activity/Diet/Wound Care/Special Instructions: No driving while taking [place] No lifting over 10 pounds You may shower. No soaking or tub baths for 2 weeks Very light activity until you are reevaluated at your follow up appointment with your surgeon Follow Bariatric diet Discharge Disposition: HOME SELF-CARE <Dilan Weeks - Last Filed: 09/17/20 22:13> Providers Date of admission: 09/14/20 11:55 Attending physician: Dilan Weeks Consults: 09/14/20 15:17 Consult Physician Routine Consulting Provider: Ema De La Torre Consult Reason/Comments: med mgmt Do you want consulting provider notified?: Yes Primary care physician: Derick Amato - Discharge Diagnosis(es) (1) Morbid obesity Status: Acute
== END 2020-09-17 15:00 | disposition home or self-care (01) | DRG 621 ==
LOC: 2ORMAIN 11:55 → 4SSUR 17:38
PROVIDERS: ADMIT Surgery; ATTEND Surgery
PROC: 0DB64Z3 Excision of Stomach, Percutaneous Endoscopic Approach, Vertical (ICD-10-PCS; principal; 2020-09-14 13:25)
PROC: 0DP64CZ Removal of Extraluminal Device from Stomach, Percutaneous Endoscopic Approach (ICD-10-PCS; 2020-09-14 13:25)
DX: E66.01 Morbid (severe) obesity due to excess calories (principal); E11.9 Type 2 diabetes mellitus without complications; R13.10 Dysphagia, unspecified; E78.5 Hyperlipidemia, unspecified; K21.9 Gastro-esophageal reflux disease without esophagitis; Z68.30 Body mass index [BMI] 30.0-30.9, adult; Z71.3 Dietary counseling and surveillance; Z98.84 Bariatric surgery status; Z88.2 Allergy status to sulfonamides; Z88.8 Allergy status to other drugs, medicaments and biological substances
CPT/HCPCS: 74240; 80048; 80051; 82310; 82565; 83036; 83735; 84100; 84520; 85025; 88307; 88342; 94640

== ENCOUNTER → 2020-09-22 | Outpatient (CLI) | payer BC ==
[2020-09-22 13:44] VITALS: BP 143/81; PULSE 90; RESP 16; TEMP 98.6; BMI 28.8
--- NOTE | 2020-09-22 13:57 | P.BASOAP ---
Subjective Progress Note Date: 09/22/20 Principal diagnosis: Morbid obesity Patient returns 1 week after band removal and sleeve gastrectomy. Doing well at this time. Heart rate 90, afebrile. Patient has no pain. Denies reflux or vomiting. Tolerating liquids. Has had some issues with low blood sugar in the 60s feeling mildly symptomatic with that. Protein intake approximately 30 g per day, excellent liquid intake over 60 ounces per day. Objective - Vital Signs Vital signs: Vital Signs Temp 98.6 F 09/22/20 13:42 Pulse 90 09/22/20 13:42 Resp 16 09/22/20 13:42 BP 143/81 09/22/20 13:42 Pulse Ox Intake & Output 09/21/20 09/22/20 09/22/20 18:59 06:59 18:59 Weight 76.204 kg - Exam Abdomen: Soft, nondistended, incisions clean and dry Assessment/Plan (1) Morbid obesity Narrative/Plan: Patient doing well at this time. Continue liquid diet. We'll meet with dietitian today. Monitor incision sites. Follow-up 2-3 weeks. Plan: Date: 09/22/20 Initial Weight: 94.801 kg Initial BMI: 35.9 Current Weight: 76.204 kg Current BMI: 28.8 Type of Surgery: Total Volume in Band: 1.4 Previous Volume: Volume Removed: Volume Added: Band Size:
== END | disposition home or self-care (01) ==
LOC: BARWHC3 13:31
PROVIDERS: ATTEND Surgery
DX: E66.01 Morbid (severe) obesity due to excess calories (principal); Z68.28 Body mass index [BMI] 28.0-28.9, adult; Z98.84 Bariatric surgery status; Z71.3 Dietary counseling and surveillance
CPT/HCPCS: 97803; 99211

== ENCOUNTER → 2020-10-13 | Outpatient (CLI) | payer BC ==
[2020-10-13 13:54] VITALS: BP 120/68; PULSE 80; RESP 16; TEMP 98; BMI 27.6
--- NOTE | 2020-10-13 17:06 | P.BASOAP ---
Subjective Progress Note Date: 10/13/20 Principal diagnosis: Morbid obesity Patient returns today for reevaluation. Doing well since last visit. Greater than 60 g of protein daily. 7 pound weight loss since last visit on 09/22. She is due for one month labs. Denies heartburn. No pain. Objective - Vital Signs Vital signs: Vital Signs Temp 98 F 10/13/20 13:52 Pulse 80 10/13/20 13:52 Resp 16 10/13/20 13:52 BP 120/68 10/13/20 13:52 Pulse Ox Intake & Output 10/12/20 10/13/20 10/13/20 18:59 06:59 18:59 Weight 73.028 kg - Exam Abdomen: Soft, nontender, nondistended Assessment/Plan (1) Morbid obesity Narrative/Plan: Patient doing well postoperative. Patient needs a new prescription for omeprazole. We'll call that in. Check one month labs at this time. Follow-up 1 month. Patient may return to work 10/19. Plan: Date: 10/13/20 Initial Weight: 94.801 kg Initial BMI: 35.9 Current Weight: 73.028 kg Current BMI: 27.6 Type of Surgery: Total Volume in Band: 1.4 Previous Volume: Volume Removed: Volume Added: Band Size:
== END | disposition home or self-care (01) ==
LOC: BARWHC3 12:45
PROVIDERS: ATTEND Surgery
DX: Z46.51 Encounter for fitting and adjustment of gastric lap band (principal); E66.01 Morbid (severe) obesity due to excess calories; Z68.35 Body mass index [BMI] 35.0-35.9, adult; Z98.84 Bariatric surgery status
CPT/HCPCS: 99211

== ENCOUNTER → 2020-10-13 | Outpatient (CLI) | payer BC ==
[2020-10-13 23:44] LABS: HCT 43.8 % (37.2-46.3); HGB 13.9 g/dL (12.0-15.0); MCH 30.8 pg (27.0-32.0); MCHC 31.7 g/dL (32.0-37.0); MCV 96.9 fL (80.0-97.0); Mean Platelet Volume 12.1 fL (9.5-12.2); Platelet Count 236 X 10*3/uL (140-440); RBC 4.52 X 10*6/uL (4.10-5.20); RDW 12.9 % (11.5-14.5)
[2020-10-14 01:27] LABS: Hemoglobin A1C 5.8 % (4.0-6.0)
[2020-10-14 02:26] LABS: African American GFR (CKD) 112.3 (60.0-200.0); Albumin 4.1 g/dL (3.80-4.90); Albumin/Globulin Ratio 1.64 (1.60-3.17); Anion Gap 10.1 mmol/L (4.00-12.00); BUN/Creat Ratio 32.86 Ratio (12.00-20.00); Calcium 10.7 mg/dL (8.7-10.3); Carbon Dioxide 24.9 mmol/L (21.6-31.8); Globulin 2.5 g/dL (1.6-3.3); Non-African American GFR(CKD) 96.9 (60.0-200.0); Potassium 4.1 mmol/L (3.5-5.5); Total Bilirubin 1.1 mg/dL (0.3-1.2); Total Protein 6.6 g/dL (6.2-8.2)
[2020-10-14 02:35] LABS: Folate, Serum 6.3 ng/mL
== END | disposition home or self-care (01) ==
LOC: LABWHC1 14:06
PROVIDERS: ATTEND Surgery
DX: K90.89 Other intestinal malabsorption (principal); E55.9 Vitamin D deficiency, unspecified; E11.9 Type 2 diabetes mellitus without complications
CPT/HCPCS: 36415; 80053; 82306; 82607; 82746; 83036; 84425; 85027

== ENCOUNTER → 2020-11-10 | Outpatient (CLI) | payer BC ==
[2020-11-10 13:06] VITALS: BP 130/76; PULSE 80; RESP 16; TEMP 98.1; BMI 27.4
--- NOTE | 2020-11-10 16:18 | P.BASOAP ---
Subjective Progress Note Date: 11/10/20 Principal diagnosis: Morbid obesity Patient returns for evaluation. Last seen 10/13. She had her 1 month labs drawn at that time. Labs look good. Recent hemoglobin A1c 5.8. She has lost 1 pound since last visit. Describes a rash beneath her pannus. No reflux. Objective - Vital Signs Vital signs: Vital Signs Temp 98.1 F 11/10/20 13:04 Pulse 80 11/10/20 13:04 Resp 16 11/10/20 13:04 BP 130/76 11/10/20 13:04 Pulse Ox Intake & Output 11/09/20 11/10/20 11/10/20 18:59 06:59 18:59 Weight 72.575 kg - Exam Abdomen: Soft, nontender, nondistended Assessment/Plan (1) Morbid obesity Narrative/Plan: Patient doing well at this time. Continue dietary and exercise regimen. Check 3 months labs next visit. Plan: Date: 11/10/20 Initial Weight: 94.801 kg Initial BMI: 35.9 Current Weight: 72.575 kg Current BMI: 27.4 Type of Surgery: Total Volume in Band: 1.4 Previous Volume: Volume Removed: Volume Added: Band Size:
== END ==
LOC: BARWHC3 12:21
PROVIDERS: ATTEND Surgery
DX: E66.01 Morbid (severe) obesity due to excess calories (principal); Z68.27 Body mass index [BMI] 27.0-27.9, adult
CPT/HCPCS: 97803; 99211

== ENCOUNTER → 2021-01-12 | Outpatient (CLI) | payer BC ==
[2021-01-12 15:32] VITALS: BP 154/89; PULSE 73; TEMP 98.1; BMI 27.4
--- NOTE | 2021-01-12 17:29 | P.BASOAP ---
Subjective Progress Note Date: 01/12/21 Principal diagnosis: Morbid obesity Patient doing well. Last seen 11/10. Still complaining of a rash beneath pannus. No nausea or vomiting. No GERD symptoms. Her weight is unchanged at 160. She has been exercising more. Remains on antiacid therapy on a daily basis. Objective - Vital Signs Vital signs: Vital Signs Temp 98.1 F 01/12/21 15:30 Pulse 73 01/12/21 15:30 Resp BP 154/89 01/12/21 15:30 Pulse Ox Intake & Output 01/11/21 01/12/21 01/12/21 18:59 06:59 18:59 Weight 72.575 kg - Exam Abdomen: Soft, nontender, nondistended Assessment/Plan (1) Morbid obesity Narrative/Plan: Will check 3 month blood work at this time. Start taking antiacids every other day and discontinue if no reflux symptoms. Patient would like to see plastic surgery to discuss future abdominoplasty. We'll try to help her with that. Follow-up 2 months. Plan: Date: 01/12/21 Initial Weight: 94.801 kg Initial BMI: 35.9 Current Weight: 72.575 kg Current BMI: 27.4 Type of Surgery: Total Volume in Band: 1.4 Previous Volume: Volume Removed: Volume Added: Band Size:
== END ==
LOC: BARWHC3 12:54
PROVIDERS: ATTEND Surgery
DX: E66.01 Morbid (severe) obesity due to excess calories (principal); Z68.27 Body mass index [BMI] 27.0-27.9, adult; Z88.2 Allergy status to sulfonamides
CPT/HCPCS: 99211

== ENCOUNTER → 2021-03-16 | Outpatient (CLI) | payer BC ==
[2021-03-16 13:11] VITALS: BP 158/83; PULSE 74; TEMP 98; BMI 28.1
--- NOTE | 2021-03-16 13:46 | P.BASOAP ---
Subjective Progress Note Date: 03/16/21 Principal diagnosis: Morbid obesity Patient returns for recheck. No longer taking any antacids. Denies reflux. Still has some rash issues. She is still interested in seeing a plastic surgeon. Patient had labs done 03/03 at [facility]. Those labs look great. Objective - Vital Signs Vital signs: Vital Signs Temp 98 F 03/16/21 13:09 Pulse 74 03/16/21 13:09 Resp BP 158/83 03/16/21 13:09 Pulse Ox Intake & Output 03/15/21 03/16/21 03/16/21 18:59 06:59 18:59 Weight 74.389 kg - Exam Abdomen: Soft, nontender, nondistended Assessment/Plan (1) Morbid obesity Narrative/Plan: Patient doing well at this time. Continue dietary and exercise regimen. Await appointment with plastic surgery regarding possible abdominoplasty. Return visit 2 months. Plan: Date: 03/16/21 Initial Weight: 94.801 kg Initial BMI: 35.9 Current Weight: 74.389 kg Current BMI: 28.1 Type of Surgery: Total Volume in Band: 1.4 Previous Volume: Volume Removed: Volume Added: Band Size:
== END | disposition home or self-care (01) ==
LOC: BARWHC3 12:42
PROVIDERS: ATTEND Surgery
DX: E66.01 Morbid (severe) obesity due to excess calories (principal)
CPT/HCPCS: 97803; 99211

== ENCOUNTER → 2021-05-25 | Outpatient (CLI) | payer BC ==
[2021-05-25 14:31] VITALS: BP 130/81; PULSE 80; TEMP 98.3; BMI 28.5
--- NOTE | 2021-05-25 14:40 | P.BASOAP ---
Subjective Progress Note Date: 05/25/21 Principal diagnosis: Morbid obesity Patient returns for reevaluation. Was last seen 03/16. Has an appointment with plastic surgery later this month. Still dealing with intermittent rash formation. Denies nausea vomiting. No reflux. She is not taking antiacids. Objective - Vital Signs Vital signs: Vital Signs Temp 98.3 F 05/25/21 14:28 Pulse 80 05/25/21 14:28 Resp BP 130/81 05/25/21 14:28 Pulse Ox Intake & Output 05/24/21 05/25/21 05/25/21 18:59 06:59 18:59 Weight 75.296 kg - Exam Abdomen: Soft, nontender, nondistended Assessment/Plan (1) Morbid obesity Narrative/Plan: Patient doing well at this time. Continue dietary and exercise regimen. Await upcoming plastic surgery evaluation. Return visit for recheck in 2 months. Plan annual labs in August. Plan: Date: 05/25/21 Initial Weight: 94.801 kg Initial BMI: 35.9 Current Weight: 75.296 kg Current BMI: 28.5 Type of Surgery: Total Volume in Band: 1.4 Previous Volume: Volume Removed: Volume Added: Band Size:
== END ==
LOC: BARWHC3 14:02
PROVIDERS: ATTEND Surgery
DX: E66.01 Morbid (severe) obesity due to excess calories (principal); Z68.28 Body mass index [BMI] 28.0-28.9, adult; Z88.2 Allergy status to sulfonamides
CPT/HCPCS: 97803; 99211

== ENCOUNTER → 2021-06-29 | Outpatient (CLI) | payer BC ==
[2021-06-29 14:07] VITALS: BP 136/84; PULSE 80; RESP 16; TEMP 98.3; BMI 29.0
--- NOTE | 2021-06-29 14:31 | P.BASOAP ---
Subjective Progress Note Date: 06/29/21 Principal diagnosis: Morbid obesity Patient returns for evaluation. Doing well since last visit. She has gained 3 pounds. She says she is back to some of her bad habits. Still not eating much. No heartburn no nausea or vomiting. No pain. Still having a rash at her skin folds. Saw plastic surgery and tentatively scheduled for surgery in the spring. Objective - Vital Signs Vital signs: Vital Signs Temp 98.3 F 06/29/21 14:05 Pulse 80 06/29/21 14:05 Resp 16 06/29/21 14:05 BP 136/84 06/29/21 14:05 Pulse Ox Intake & Output 06/28/21 06/29/21 06/29/21 18:59 06:59 18:59 Weight 76.657 kg - Exam Abdomen: Soft, nondistended, nontender, skin on skin irritation with folds and umbilicus and beneath pannus Assessment/Plan (1) Morbid obesity Narrative/Plan: Patient doing well at this time. Continue dietary and exercise regimen. Patient will try to get down to a weight of 165 by the time of her next visit in August. Plan 1 year labs in August. Plan: Date: 06/29/21 Initial Weight: 94.801 kg Initial BMI: 35.9 Current Weight: 76.657 kg Current BMI: 29.0 Type of Surgery: Total Volume in Band: 1.4 Previous Volume: Volume Removed: Volume Added: Band Size:
== END ==
LOC: BARWHC3 13:55
PROVIDERS: ATTEND Surgery
DX: E66.01 Morbid (severe) obesity due to excess calories (principal); Z68.29 Body mass index [BMI] 29.0-29.9, adult; Z98.84 Bariatric surgery status; Z88.2 Allergy status to sulfonamides
CPT/HCPCS: 99211

== ENCOUNTER → 2021-12-14 | Outpatient (CLI) | payer BC ==
[2021-12-14 13:48] VITALS: BP 149/84; PULSE 80; RESP 16; TEMP 98; BMI 28.5
--- NOTE | 2021-12-14 17:26 | P.BASOAP ---
Subjective Progress Note Date: 12/14/21 Principal diagnosis: Morbid obesity Patient returns for evaluation. She was hospitalized in October with abdominal pain and possible bowel obstruction. Says she feels much better now. Only has mild pain occasionally. No further vomiting. Mild heartburn at times remains on antiacids daily. Weight did increase from 284-303. Patient says she has worsening knee pain bilaterally limiting her activity significantly. Patient has an appointment to see orthopedics in the near future. Objective - Vital Signs Vital signs: Vital Signs Temp 98 F 12/14/21 13:43 Pulse 80 12/14/21 13:43 Resp 16 12/14/21 13:43 BP 149/84 12/14/21 13:43 Pulse Ox Intake & Output 12/13/21 12/14/21 12/14/21 18:59 06:59 18:59 Weight 75.296 kg - Exam Abdomen: Soft, nontender, nondistended Assessment/Plan (1) Morbid obesity Narrative/Plan: Patient doing well at this time. Await upcoming plastic surgery. Check annual labs at this time. Follow-up 6 months. Plan: Date: 12/14/21 Initial Weight: 94.801 kg Initial BMI: 35.9 Current Weight: 75.296 kg Current BMI: 28.5 Type of Surgery: Total Volume in Band: 1.4 Previous Volume: Volume Removed: Volume Added: Band Size:
--- NOTE | 2021-12-14 17:27 | P.PN ---
Progress Note - Text Progress Note Date: 12/14/21 Progress Note Date: 12/14/21 Principal diagnosis: Morbid obesity Patient returns for reevaluation. Was last seen in June. Patient has been seen by her plastic surgeon and is now scheduling her abdominoplasty. She is due for one year labs. She has lost 3 pounds since her last visit. No antiacid use. Objective - Vital Signs Vital signs: Vital Signs 12/14/21 13:27 Pulse Ox Intake & Output - Exam Abdomen: Soft, nontender, nondistended Assessment/Plan (1) Obesity, morbid (more than 100 lbs over ideal weight or BMI > 40) Narrative/Plan: Patient doing well at this time. Continue dietary and exercise regimen. Await upcoming plastic surgery. Check one year labs. Follow-up 6 months. Plan: Date: 12/14/21
== END ==
LOC: BARWHC3 13:32
PROVIDERS: ATTEND Surgery
DX: E66.01 Morbid (severe) obesity due to excess calories (principal); Z68.28 Body mass index [BMI] 28.0-28.9, adult; Z88.2 Allergy status to sulfonamides
CPT/HCPCS: 99211

== ENCOUNTER → 2023-01-31 | Outpatient (CLI) | payer BC ==
[2023-01-31 14:09] VITALS: BP 146/73; PULSE 73; RESP 16; TEMP 98.6; BMI 27.8
--- NOTE | 2023-01-31 14:38 | P.BASOAP ---
Subjective Progress Note Date: 01/31/23 Principal diagnosis: Morbid obesity Patient returns for annual visit. She was last seen in November 2021. She states she had recent lab work. My office cannot locate that at this time. Otherwise doing well. She had her abdominoplasty with a revision. She is happy with those results. She is down 4 pounds since last year. Objective - Vital Signs Vital signs: Vital Signs Temp 98.6 F 01/31/23 14:07 Pulse 73 01/31/23 14:07 Resp 16 01/31/23 14:07 BP 146/73 01/31/23 14:07 Pulse Ox FiO2 Intake & Output 01/30/23 01/31/23 01/31/23 18:59 06:59 18:59 Weight 73.482 kg - Exam Abdomen: Soft, nontender, nondistended Assessment/Plan (1) Morbid obesity Narrative/Plan: Patient doing well at this time. Continue dietary and exercise regimens. Will review recent labs once found. Follow-up 1 year. Plan: Date: 01/31/23 Initial Weight: 94.801 kg Initial BMI: 35.9 Current Weight: 73.482 kg Current BMI: 27.8 Type of Surgery: Total Volume in Band: 1.4 Previous Volume: Volume Removed: Volume Added: Band Size:
== END ==
LOC: BARWHC3 13:46
PROVIDERS: ATTEND Surgery
DX: E66.01 Morbid (severe) obesity due to excess calories (principal); Z68.27 Body mass index [BMI] 27.0-27.9, adult; Z71.3 Dietary counseling and surveillance; Z88.2 Allergy status to sulfonamides
CPT/HCPCS: 99211